=== PATIENT | female | born 1995 | race Caucasian/White ===

== ENCOUNTER 2017-11-08 21:17 | Emergency (ER) | payer SELFPAY ==
[~2017-11-08] VITALS: Ht 167.6 cm; Wt 155.3 kg
[2017-11-08 21:28] VITALS: TEMP 36.7; Ht 167.6 cm; Wt 155.3 kg
[2017-11-08 22:12] VITALS: O2SAT 99
[2017-11-08] MEDS ORDERED: LORAZEPAM 0.5 MG TAB SL STA (23:08)
[2017-11-08] MEDS ORDERED: SODIUM CHLORIDE 0.9% 1000ML 2,000 ML IV STA (23:08)
[2017-11-08 23:10] LABS: HEMATOCRIT 38.4 % (37-47); HEMOGLOBIN 13.6 g/dL (12.0-16.0); MEAN CELL VOLUME 84.8 fL (80-100); MEAN CORPUSCULAR HGB CONC 35.4 g/dl (32-36); PLATELET COUNT 335 K/uL (130-400); RED CELL DISTRIBUTION WIDTH CV 13.5 % (11.5-14.5); RED CELL DISTRIBUTION WIDTH SD 41.2 fL (36.4-46.3); WHITE BLOOD COUNT 10.45 K/uL (4.8-10.8)
--- NOTE | 2017-11-08 23:15 | EMERGENCY ROOM VISIT NOTE ---
History Report prepared by Rafael: Anju Medeiros Under the Supervision of: Dr. Richie Portillo M.D. First contact with patient: 22:57 Chief Complaint: TACHYCARDIA Stated Complaint: RAPID HEART BEAT History of Present Illness The patient is a 22 year old female who presents to the Emergency Room with complaints of persistent cardiac palpitations for three days. She notes associated chest pain with the palpitations. She currently rates her pain a 5/ 10 in severity. She reports a history of anxiety and panic attacks. She reports experiencing palpitations at least twice a month, though they do not normally last this long. She is a senior at [employer]. She denies any stressors with school. She has not been evaluated by [facility]. She was seen in the ED 18 months ago for similar symptoms. She notes that she has not actually followed up with her PCP regarding her anxiety and does not currently take any medications for panic attacks. She notes a cough, though denies any fever, congestion chills, shortness of breath, or urinary symptoms. She is not taking any oral contraceptives. She denies any history of cancers, PE, or DVTs. She denies any recent long distant trips. Source of History: patient Onset: three days Position: other (global ) Symptom Intensity: 5/10 Quality: other (palpitations) Timing: other (persistent) Associated Symptoms: + cough, + chest pain, No fevers, No chills, No SOB, No urinary symptoms Note: She denies any congestion. Review of Systems See HPI for pertinent positives and negatives. A total of ten systems were reviewed and were otherwise negative. Past Medical & Surgical Medical Problems: (1) Anxiety Family History Cancer Diabetes mellitus Social History Smoking Status: Never Smoker Smokeless Tobacco Use: No Alcohol Use: none Drug Use: none Marital Status: single Housing Status: lives with roommate Occupation Status: [employer] student Current/Historical Medications No Active Prescriptions or Reported Meds Allergies Coded Allergies: No Known Allergies (Unverified , 11/08/17) Physical Exam Vital Signs Date Time Temp Pulse Resp B/P (MAP) Pulse Ox O2 Delivery O2 Flow Rate FiO2 11/09/17 02:30 101 20 128/85 96 11/09/17 01:13 112 20 134/83 96 Room Air 11/08/17 22:17 130 11/08/17 22:15 130 18 114/82 99 Room Air 11/08/17 22:12 99 Room Air 11/08/17 22:09 99 Room Air 11/08/17 21:28 36.7 130 18 163/92 98 Room Air Physical Exam GENERAL: Awake, alert, anxious-appearing, in no distress HENT: Normocephalic, atraumatic. Oropharynx dry with mm but otherwise unremarkable. EYES: Normal conjunctiva. Sclera non-icteric. NECK: Supple. No nuchal rigidity. FROM. No JVD. RESPIRATORY: Clear to auscultation. CARDIAC: Sinus tachycardia, normal rhythm. Extremities warm and well perfused. Pulses equal. ABDOMEN: Soft, non-distended. No tenderness to palpation. No rebound or guarding. No masses. RECTAL: Deferred. MUSCULOSKELETAL: Chest examination reveals no tenderness. The back is symmetrical on inspection without obvious abnormality. There is no CVA tenderness to palpation. No joint edema. LOWER EXTREMITIES: Calves are equal size bilaterally and non-tender. No edema. No discoloration. NEURO: Normal sensorium. No sensory or motor deficits noted. SKIN: No rash or jaundice noted. Medical Decision & Procedures ER Provider Diagnostic Interpretation: Radiology results as stated below per my review and interpretation: Chest XR: Normal mediastinum. No gross infiltrates. Laboratory Results 11/08/17 22:10 11/08/17 22:10 Test 11/08/17 22:10 Red Blood Count 4.53 M/uL (4.2-5.4) Mean Corpuscular Volume 84.8 fL (80-100) Mean Corpuscular Hemoglobin 30.0 pg (25-34) Mean Corpuscular Hemoglobin Concent 35.4 g/dl (32-36) RDW Standard Deviation 41.2 fL (36.4-46.3) RDW Coefficient of Variation 13.5 % (11.5-14.5) Mean Platelet Volume 9.0 fL (7.4-10.4) Prothrombin Time 9.4 SECONDS (9.0-12.0) Prothromb Time International Ratio 0.9 (0.9-1.1) Activated Partial Thromboplast Time 28.9 SECONDS (21.0-31.0) Partial Thromboplastin Ratio 1.1 D-Dimer 260 ug/L FEU (0-500) Anion Gap 12.0 mmol/L (3-11) Est Creatinine Clear Calc Drug Dose 156.9 ml/min Estimated GFR () 110.4 Estimated GFR (Non- 95.2 BUN/Creatinine Ratio 15.7 (10-20) Calcium Level 8.9 mg/dl (8.5-10.1) Magnesium Level 2.1 mg/dl (1.8-2.4) Total Bilirubin 0.2 mg/dl (0.2-1) Aspartate Amino Transf (AST/SGOT) 21 U/L (15-37) Alanine Aminotransferase (ALT/SGPT) 26 U/L (12-78) Alkaline Phosphatase 105 U/L (45-117) Total Creatine Kinase 254 U/L (26-192) Creatine Kinase MB 2.7 ng/ml (0.5-3.6) Creatine Kinase MB Ratio 1.1 (0-3.0) Troponin I < 0.015 ng/ml (0-0.045) Total Protein 7.8 gm/dl (6.4-8.2) Albumin 3.8 gm/dl (3.4-5.0) Globulin 4.0 gm/dl (2.5-4.0) Albumin/Globulin Ratio 1.0 (0.9-2) Thyroid Stimulating Hormone (TSH) 1.840 uIu/ml (0.300-4.500) Human Chorionic Gonadotropin, Qual NEG (NEG) Laboratory results reviewed by me Medications Administered Medications (Trade) Dose Ordered Sig/Jasmeet Route Start Time Stop Time Status Last Admin Dose Admin Sodium Chloride 2,000 ml @ 999 mls/hr Q2H1M STAT IV 11/08/17 23:08 11/09/17 01:08 DC 11/08/17 23:23 999 MLS/HR Lorazepam (Ativan Tab) 0.5 mg NOW STAT SL 11/08/17 23:08 11/08/17 23:13 DC 11/08/17 23:23 0.5 MG Potassium Chloride (Klor-Con M10) 40 meq NOW STAT PO 11/09/17 00:13 11/09/17 00:15 DC 11/09/17 01:12 40 MEQ Sodium Chloride 1,000 ml @ 999 mls/hr Q1H1M STAT IV 11/09/17 01:33 11/09/17 02:33 DC 11/09/17 01:44 999 MLS/HR ECG Per My Interpretation Indication: chest pain Rate (beats per minute): 132 Rhythm: sinus tachycardia Findings: no acute ischemic change, other (Normal axis. Baseline artifact. ) Change: Patient's electrocardiogram interpreted by me. ED Course 2306: The patient was evaluated in room A2. A complete history and physical exam was performed. 0000: I reassessed the patient at this time. She is resting. []: I reassessed the patient at this time. She is feeling better and resting comfortably. I discussed the results and treatment plan with the patient. I answered all pertaining questions that she had. She expressed understanding and verbalized agreement. The patient will be discharged home. Medical Decision I reviewed the patient's past medical history, medications, and the nursing notes as described above. Differential diagnosis: Etiologies such as cardiac ischemia, aortic dissection, pulmonary embolism, pneumonia, pneumothorax, musculoskeletal, infections, pericarditis, myocarditis , esophageal rupture, gastrointestinal, as well as others were entertained. The patient is a 22-year-old woman with a past medical history of anxiety and panic attacks who presents emergency department with palpitations per hpi. On arrival the patient is anxious appearing but in no acute distress, afebrile, heart rate in the 130s with regular rhythm, vital signs otherwise stable. Patient appears clinically dry. EKG with sinus tachycardia but no evidence of acute ischemia. Troponin negative in the setting of 3 days of symptoms. K 3.0 and labs otherwise unremarkable including WBC and d-dimer wnl. Thus PE not likely. Chest x-ray negative for pneumonia. Heart rate improving with IV fluids and 0.5mg Ativan. Given the patient's clinically dry appearance she was given a additional third liter IV fluids with subsequent improvement in her heart rate to the 100s. Patient reported resolution of her palpitations. Thus the patient's symptoms are most likely due to mild dehydration. Plan for [facility] f/ u. Findings and plan for follow-up reviewed with patient. Patient agreeable and d/c'd per discharge instructions. Medication Reconcilliation Current Medication List: was personally reviewed by me Blood Pressure Screening Patient's blood pressure: Elevated blood pressure Blood pressure disposition: Elevated BP felt to be situational Impression Primary Impression: Palpitations Additional Impression: Dehydration Scribe Attestation The scribe's documentation has been prepared under my direction and personally reviewed by me in its entirety. I confirm that the note above accurately reflects all work, treatment, procedures, and medical decision making performed by me. Departure Information Dispostion Home / Self-Care Prescriptions No Active Prescriptions or Reported Meds Referrals No Doctor, Assigned (PCP) Forms HOME CARE DOCUMENTATION FORM, IMPORTANT VISIT INFORMATION, WORK / SCHOOL INSTRUCTIONS Patient Instructions ED Dehydration, ED Palpitations, My [facility] Additional Instructions Please follow up with S in the next 1-3 days for re-evaluation. Your symptoms are most likely due to mild dehydration Otherwise, your exam, EKG, chest xray, and lab results did not show signs of an emergent condition at this time. Drink plenty of fluids to ensure hydration. Return to the emergency department for worsening symptoms as described in the accompanying instructions. Problem Qualifiers
[2017-11-08 23:18] LABS: ALBUMIN 3.8 gm/dl (3.4-5.0); ALT/SGPT 26 U/L (12-78); BLOOD UREA NITROGEN 14 mg/dl (7-18); CALCIUM 8.9 mg/dl (8.5-10.1); CARBON DIOXIDE 23 mmol/L (21-32); CREATININE 0.86 mg/dl (0.60-1.20); GLUCOSE 111 mg/dl (70-99); SODIUM 138 mmol/L (136-145)
[2017-11-08 23:23] LABS: ALKALINE PHOSPHATASE 105 U/L (45-117); AST/SGOT 21 U/L (15-37); CKMB 2.7 ng/ml (0.5-3.6); TOTAL PROTEIN 7.8 gm/dl (6.4-8.2)
[2017-11-08 23:24] LABS: INR 0.9 (0.9-1.1); PTT PATIENT 28.9 SECONDS (21.0-31.0)
[2017-11-09] MEDS ORDERED: POTASSIUM CHLORIDE 10 MEQ TABCR PO STA (00:13)
[2017-11-09] MEDS ORDERED: SODIUM CHLORIDE 0.9% 1000ML 1,000 ML IV STA (01:33)
[2017-11-09 02:30] VITALS: BP 128/85; PULSE 101; O2SAT 96
--- NOTE | 2017-11-09 06:51 | DIAGNOSTIC IMAGING REPORT ---
CHEST ONE VIEW PORTABLE CLINICAL HISTORY: 22 years-old Female presenting with chest pain. TECHNIQUE: Portable upright AP view of the chest was obtained. COMPARISON: 01/22/2016. FINDINGS: Cardiomediastinal silhouette normal. Mildly low lung volumes with hypoventilatory changes. No focal opacity. No large effusion or pneumothorax. Osseous structures normal. Upper abdomen normal. IMPRESSION: 1. Mildly low lung volumes with hypoventilatory changes. Otherwise no acute cardiopulmonary disease. Electronically signed by: Michael Carter M.D. 11/09/2017 6:49 AM Dictated Date/Time: 11/09/2017 6:48 AM
[2017-11-10] MEDS ORDERED: FAMO40TA6 PO (07:45)
== END 2017-11-09 02:32 | disposition home or self-care (01) ==
LOC: C.EDB 21:23 → C.EDA 11-09 02:32
DX: R00.2 Palpitations (principal); E86.0 Dehydration; F41.9 Anxiety disorder, unspecified; Z80.9 Family history of malignant neoplasm, unspecified; Z83.3 Family history of diabetes mellitus

== ENCOUNTER 2017-11-10 06:13 | Emergency (ER) | payer OTHER ==
[~2017-11-10] VITALS: Ht 167.6 cm; Wt 155.0 kg
[2017-11-10 06:21] VITALS: TEMP 36.8; Ht 167.6 cm; Wt 155.0 kg
[2017-11-10] MEDS ORDERED: FAMOTIDINE 20 MG TAB PO STA (06:55)
[2017-11-10] MEDS ORDERED: GI COCKTAIL PO STA (06:55)
[2017-11-10] MEDS ORDERED: SUCRALFATE 1 GM TAB PO STA (06:55)
[2017-11-10 06:57] VITALS: O2SAT 97
--- NOTE | 2017-11-10 06:58 | EMERGENCY ROOM VISIT NOTE ---
History Report prepared by Rafael: Viry Dumont Under the Supervision of: Dr. Isidro Yao M.D. First contact with patient: 06:28 Chief Complaint: ANXIETY Stated Complaint: TACHYCARDIA History of Present Illness The patient is a 22 year old female who presents to the Emergency Room with complaints of waking up with persistent tachycardia this morning, about one hour ago. The patient states a history of anxiety and acid reflux. She reports that she does not currently see anyone anyone for her acid reflux. The patient states that she has some abdominal pain, but denies it being severe. She notes that she does not currently have any symptoms. Source of History: patient Onset: this morning, about one hour ago Position: other Quality: other (tachycardia ) Timing: other (persistent) Associated Symptoms: + abdominal pain Review of Systems See HPI for pertinent positives & negatives. A total of 10 systems reviewed and were otherwise negative. Past Medical & Surgical Medical Problems: (1) Anxiety Family History Cancer Diabetes mellitus Social History Smoking Status: Never Smoker Alcohol Use: none Drug Use: none Marital Status: single Housing Status: lives with roommate Occupation Status: [employer] student Current/Historical Medications Scheduled Famotidine (Pepcid), 40 MG PO DAILY Allergies Coded Allergies: No Known Allergies (Unverified , 11/10/17) Physical Exam Vital Signs Date Time Temp Pulse Resp B/P (MAP) Pulse Ox O2 Delivery O2 Flow Rate FiO2 11/10/17 07:55 85 18 129/77 95 11/10/17 07:01 93 18 125/73 99 Room Air 11/10/17 06:57 97 Room Air 11/10/17 06:21 36.8 91 18 125/80 98 Room Air 11/10/17 06:21 106 Physical Exam GENERAL: Patient is a healthy-appearing well-nourished female. HEAD: Normocephalic atraumatic EYES: Ocular movements intact pupils equal and react to light OROPHARYNX mucous membranes are moist no exudates present no erythema or edema present NECK: Supple no nuchal rigidity CHEST: Good equal expansion LUNGS: Clear and equal to auscultation CARDIAC: Normal S1 and S2 ABDOMEN: Soft nontender no guarding BACK: No CVA tenderness EXTREMITIES: No pain upon palpation normal muscle strength in all groups no clubbing cyanosis or edema NEURO: Patient is following commands and answering questions appropriately. Alert and oriented x3 Cranial Nerves 2-12 grossly intact Medical Decision & Procedures Medications Administered Medications (Trade) Dose Ordered Sig/Jasmeet Route Start Time Stop Time Status Last Admin Dose Admin Famotidine (Pepcid Tab) 20 mg NOW STAT PO 11/10/17 06:55 11/10/17 06:57 DC 11/10/17 07:02 20 MG Sucralfate (Carafate Tab) 1 gm NOW STAT PO 11/10/17 06:55 11/10/17 06:57 DC 11/10/17 07:02 1 GM Al Hydroxide/Mg Hydroxide (Maalox Susp) 30 ml STK-MED ONCE .ROUTE 11/10/17 06:59 11/10/17 07:00 DC 11/10/17 07:03 30 ML Lidocaine HCl (Viscous Lidocaine 2% Soln) 20 ml STK-MED ONCE .ROUTE 11/10/17 06:59 11/10/17 07:01 DC 11/10/17 07:03 10 ML ED Course 0648: Past medical records reviewed. The patient was evaluated in room B6. A complete history and physical examination was performed. 0655: Ordered Sucralfate 1gm PO and Famotidine 20mg PO. 0659: Ordered Lidocaine HCL 20ml and Maalox Susp 30ml. 0750: Upon reexamination the patient is resting comfortably. I discussed results and treatment plan with the patient. She verbalizes agreement and understanding. The patient is ready for discharge. Medical Decision Differential diagnosis: Etiologies such as appendicitis, diverticulitis, PUD, biliary pathology, UTI, pancreatitis, obstruction, mesenteric ischemia, aortic pathology, infections, inflammatory bowel disease, renal colic, as well as others were entertained. This is a 22-year-old female who presents emergency department complaining of acid reflux. The patient was given GI cocktail Pepcid and Carafate here. Repeat examination revealed improvement patient's symptoms. I do feel the patient as well as to be discharged home for follow-up with her primary care physician. Patient was in agreement with the treatment plan. Medication Reconcilliation Current Medication List: was personally reviewed by me Blood Pressure Screening Patient's blood pressure: Normal blood pressure Blood pressure disposition: Did not require urgent referral Impression Primary Impression: Acid reflux Scribe Attestation The scribe's documentation has been prepared under my direction and personally reviewed by me in its entirety. I confirm that the note above accurately reflects all work, treatment, procedures, and medical decision making performed by me. Departure Information Dispostion Home / Self-Care Prescriptions Famotidine (Pepcid) 40 Mg Tab 40 MG PO DAILY for 30 Days, #30 TAB Prov: Isidro Yao MD 11/10/17 Referrals No Doctor, Assigned (PCP) Forms HOME CARE DOCUMENTATION FORM, IMPORTANT VISIT INFORMATION Patient Instructions My [facility] Additional Instructions Take 5 ml Maalox before every meal and at bedtime You have been examined and treated today on an emergency basis only. This is not a substitute for, or an effort to provide, complete comprehensive medical care. It is impossible to recognize and treat all injuries or illnesses in a single emergency department visit. It is therefore important that you follow up closely with [facility]. Call as soon as possible for an appointment. Thank you for your time and consideration. I look forward to speaking with you again soon. Please don't hesitate to call us if you have any questions. Problem Qualifiers Primary Impression: Acid reflux Esophagitis presence: esophagitis presence not specified Qualified Codes: K21.9 - Gastro-esophageal reflux disease without esophagitis
[2017-11-10] MEDS ORDERED: ALUMINUM/MAGNESIUM SUSP 30 ML UDC ONE (06:59)
[2017-11-10] MEDS ORDERED: LIDOCAINE HCL 2% VISC SOLN 20 ML UDC ONE (06:59)
[2017-11-10] MEDS ORDERED: FAMO40TA6 PO (07:45)
[2017-11-10 07:55] VITALS: BP 129/77; PULSE 85; O2SAT 95
== END 2017-11-10 07:57 | disposition home or self-care (01) ==
LOC: EDBD 06:13 → C.EDB 06:14
DX: K21.9 Gastro-esophageal reflux disease without esophagitis (principal); F41.9 Anxiety disorder, unspecified; Z83.3 Family history of diabetes mellitus